=== PATIENT | female | born 1980 | race Caucasian/White ===

== ENCOUNTER 2022-08-25 13:00 | Outpatient (RCR) | payer OTHER, SELFPAY ==
--- NOTE | 2022-08-11 13:59 | MHC.PT.EP ---
[facility] [place] Office [place] Office [place] Office [address] Tonio Linn [address] [phone] F: [phone] F: [phone] F: [phone] F: [phone] Physical Therapy Plan of Care Date of Evaluation: Date of Surgery: NA Diagnosis: B LBP WITH SCIATICA Assessment: Pt IS 42 YO F REFERRED TO PT FROM DR BROWNING WITH LBP WITH SCIATICA. 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 NO SPECIFIC PRECIPITATING EVENT/INJURY TO ONSET OF PAIN. HAS HAD SOME MED WITH A LITTLE RELIEF. OVERALL BETTER THAN WHEN PAIN BEGAN 05/27/22 ( I COULDNT EVEN WALK THEN ). PRESENTS TO PT SHAKING REPORTS SHE HAS BEEN THROWING UP AND HAS NOT EATEN BUT SHE DIDNT WANT TO CX. MODIFIED EVAL BEGUN. PRESENTS WITH ANTALGIC GT, LIMTED TRUNK ROM, LIMITED LE FLEXIBILITY, DECREASED CORE STRENGTH, BACK PAIN WITH FLUCTUATING LE SXS. SHOULD BENEFIT FROM PT TO ADDRESS THESE ISSUES Frequency and Duration: The patient will be seen 2X/WK X 6 WKS Short Term Goals: 1. CENTRALIZE SXS 2. INCREASED AWARENESS BACK CARE 3. Pt TO PERF 2-3 WORK REL TASKS WITH PROPER BODY MECH 4. IMPROVED GT PATTERN (LESS SLOW AND ANTALGIC) Family Medicine Physician Assistant Goals: 1. IMPROVED MOD OSWESTRY (29/50 AT SOC) 2. RTW 3. DECREASED BACK PAIN AT LEAST 50% WITH ADLS Treatment Plan: Modalities to reduce pain, spasms and effusion. Manual therapy to restore motion and function. Therapeutic exercise to improve strength and flexibility. Neuromuscular re-education for posture and balance. Therapeutic activities to return to functional activities of daily living. Electronically signed by: BECKI ELLINGTON PT Please sign and return to therapist. Thank you for your referral.
--- NOTE | 2022-12-01 13:39 | MHC.PT.DC ---
[facility] [place] Office [place] Office [place] Office [address] [place] [address] Dr Tonio Linn [address] [phone] F: [phone] F: [phone] F: [phone] F: [phone] Physical Therapy Discharge Report Diagnosis: B LBP WITH SCIATICA Date of Surgery: NA Date of Evaluation: 08/11/22 Date of Discharge: 12/01/22 Treatments to Date: 3 Cancellations to Date: No Shows to Date: Discharge Status: Visit Non-compliance Discharge Summary: Pt SEEN FOR INIT EVAL AND 2 VISITS. AT LAST VISIT ON 08/25/22 PER ASSESSMENT SLIGHTLY IMPROVED AKI TO STRETCH/EX TODAY. REPORTS RELIEF WITH ST WORK (NO SIGNIF ERYTHEMA NOTED). SHOULD BENEFIT FROM SLOW PROGRESSION OF EXS/STRETCHES. MAYBE TRY TO KEEP BETWEEN 5 AND 7 TOTAL FOR HOME. . Pt THEN NO SHOWED HER LAST SCHEDULED APPT Electronically signed by: BECKI ELLINGTON PT Please sign and return to therapist. Thank you for your referral.
== END 2022-12-01 13:42 | disposition home or self-care (01) ==
LOC: HO.PTWFD 13:00
PROVIDERS: PCP Hospitalist; Visit Provider Family Medicine
DX: M54.40 Lumbago with sciatica, unspecified side (principal)
CPT/HCPCS: 97110; 97140; 97162

== ENCOUNTER 2023-06-02 09:37 | Outpatient (AMB) | payer OTHER, SELFPAY ==
[2023-06-02 09:42] VITALS: BP 140/90; PULSE 126; RESP 13; O2SAT 96; BMI 31.7
--- NOTE | 2023-06-02 09:42 | A.OFFPC_ITS ---
Vital Signs 06/02/23 09:42 Height 5 ft 9 in Weight 215 lb BMI 31.7 BP 140/90 H Blood Pressure Location Lt brachial Position Sitting Respiration 13 Pulse 126 H Pulse Source Pulse Oximeter Pulse Oximetry (%) 96 Oxygen Delivery Method Room Air Intake Visit Reasons: [facility] detox/05-23 Intake Note: Patient is here from multiple hospital stays and [facility] detox facility. Patient reports she did not have discharge instructions from [facility]. Patient reports she was told she has hepatitis, elevated liver enzymes, and hypertension. Patient is currently taking Acamprosate Calcium 333MG TABLETS 3 TIMES A DAY. Patient reports she goes to twice per day and she does not have a sponsor yet. Patient has an appointment next week at [facility] for medications. Patient reports she is 23 days sober today. Patient is currently fasting in case of labs. 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 Required: No Accompanied by: Self / Same As Patient Allergies sulfamethoxazole [From Bactrim] Allergy (Mild, Verified 06/02/23 09:56) Rash trimethoprim [From Bactrim] Allergy (Mild, Verified 06/02/23 09:56) Rash Tobacco use date assessed: 06/02/23 Dental Screening Dental Screen Date: 06/02/23 Did you have a dental visit in the last 12 months?: No Did you have a dental problem in the last 6 months where you did not have access to dental care?: No Was dental information given to patient?: Patient declined HPI [facility] detox HPI Details 43 y/o female presents to f/u ED visit for alcohol withdrawal. She reports she is here to f/u for detox but I do not see any notes for this. Blood pressure today 140/90, 126p. She is on lisinopril 20mg and metoprolol 100mg daily. She reports she is not taking her metoprolol at home as it is . She reports she was last at the [facility] last Tuesday and is on acamprosate 666mg t.i.d. Pt reports ongoing bilateral low back pain. HPI Comments History of Present Illness Details Documentation assistance for Alvino Hayes MD, was provided by Jose Lennon,? Car Body Inspector on 06/02/2023 10:19 AM EST. I, Dr. Hayes, have read, observed, and verified documentation. [facility] Medical History (Updated 06/02/23 @ 10:37 by Jose Lennon) Hypertension Lower back pain Family History (Updated 06/02/23 @ 10:03 by Mattie Valdes CMA) Mother Hypertension Breast cancer Lung cancer Diabetes No family history of mental disorder Alcoholic Father Diabetes Hypertension Heart attack Cardiac abnormality No family history of mental disorder Social History Housing: Apartment Patient Tobacco Use Status: Current everyday Tobacco user Cigarette Packs Per Day: 0.25 (half a pack depending on the mood patient is in) Cigarettes Per Day: 5 (patient stated 10 or maybe 5) Years Smoked: 20 e-Cigarette/Vaping Use: Never Used service: No Current occupational status: employed and disabled Current occupation: Filed for disability Current occupational exposures/hazards: No Cognitive needs: No Hearing needs: No Vision needs: No Questionnaire Thrive Questionnaire Date Thrive assessed: 07/16/22 TEQUILA-7 AMB Questionnaire TEQUILA-7 Date TEQUILA - 7 assessed: 07/16/22 Source: Developed by Drs. Ra Maddox, Nadiya Correa, Dylon Norman and colleagues, with an educational jc from [employer]. Review of Systems Const Denies chills, Denies fatigue, Denies fever(s), Denies headache(s) and Denies weakness ENT Denies dizziness and Denies headache(s) Card Denies chest pain, Denies lightheadedness, Denies dyspnea and Denies other (Palpitations) Resp Denies cough, Denies dyspnea, Denies wheezing and Denies other ( shortness of breath) Musc Denies numbness and Denies tingling Neuro Denies dizziness, Denies headache(s), Denies numbness, Denies tingling, Denies paresthesias and Denies weakness Psych Denies anxiety and Denies depression Endo Denies fatigue Aller/Immun Denies wheezing Physical exam (Primary Care) Vital Signs: Last Vital Signs Pulse 126 H 06/02/23 09:42 Resp 13 06/02/23 09:42 BP 140/90 H 06/02/23 09:42 Pulse Ox 96 06/02/23 09:42 Oxygen Delivery Method Room Air 06/02/23 09:42 BMI result Body Mass Index 31.7 Tobacco/Smoking Status: Tobacco use Status Tobacco use date assessed 06/02/23 06/02/23 10:03 Patient Tobacco Use Status Current everyday Tobacco 06/02/23 10:03 e-Cigarette/Vaping Use Never Used 06/02/23 09:45 Thrive Assessment: Date of Thrive Assessment Date Thrive assessed 07/16/22 06/02/23 09:45 Const General: no acute distress and well developed Nutritional Appearance: well nourished Orientation/consciousness: patient oriented x3 HENMT Head: Yes normocephalic and Yes atraumatic Eyes General: appearance normal, both eyes and all related structures Pupils: Equal, round and reactive pupils present EOM: EOMs intact bilaterally Resp Effort & Inspection: normal respiratory effort Auscultation: clear to auscultation bilaterally Cardio Rate: tachycardic Rhythm: regular rhythm Heart sounds: S1 normal heart sound present, S2 normal heart sound present, no gallops, no murmurs and no rubs Neuro General: patient oriented x3 and gait normal Cranial nerves: Yes Equal, round and reactive pupils present Psych Affect: normal affect Assessment and Plan Assessment & Plan (1) Alcohol withdrawal: Code(s): F10.939 - Alcohol use, unspecified with withdrawal, unspecified Plan: Still?showing?some?signs?of?withdrawal?such?as ?elevated?heart?rate?but?she?has?been?abstinent?from?alcohol She?will?continue?abstinence Will?deal?with?heart?rate?and?blood?pressure?as?described?below. (2) Hypertension: Code(s): I10 - Essential (primary) hypertension Plan: Blood?pressure?is?elevated.??Recent?withdrawal and?detox?from?alcohol She?had?been?on?metoprolol?and?lisinopril?as?well?as?amlodipine?in?the?past. She?has?not?been?taking?any?medications?for?blood?pressure Will?resume?metoprolol?and?lisinopril?and?follow-up?in?a? month?to?adjust?her?medications. (3) Alcohol abuse: Code(s): F10.10 - Alcohol abuse, uncomplicated Plan: [facility] She?is?on?acamprosate Offered?referral?to?addiction?medicine?and?she?will?think?about?this. Encouraged?continue?abstinence (4) Tachycardia: Code(s): R00.0 - Tachycardia, unspecified Plan: Likely?secondary?to?alcohol?withdrawal Starting?metoprolol?as?above Advised?good?hydration (5) Bilateral low back pain with sciatica: Code(s): M54.40 - Lumbago with sciatica, unspecified side Plan: Will?give?her?diclofenac?gel Advised?heat Will?refer?her?back?to?[place] Orders: Orders Complete Blood Count Auto Diff Today Z00.00 - Encounter for general adult medical examination without abnormal findings Comprehensive Schroeder. Panel Fast Today Z00.00 - Encounter for general adult medical examination without abnormal findings Lipid Panel Today Z00.00 - Encounter for general adult medical examination without abnormal findings TSH reflex Free T4 Today Z00.00 - Encounter for general adult medical examination without abnormal findings UA and rflx microscopic Today Z00.00 - Encounter for general adult medical examination without abnormal findings Vitamin B12 and Folate Today E53.8 - Deficiency of other specified B group vitamins Microalbumin, Random (w Creat) Today I10 - Essential (primary) hypertension Medications: New lisinopril 10 mg PO DAILY 30 days 30 tabs 2RF metoprolol succinate ER 50 mg PO Q12H 30 days 60 tabs 2RF diclofenac sodium 1% (Aleve (diclofenac)) apply to single knee, ankle, foot; for foot includes sole/toes/top of foot 4 grams topical QID 30 days 200 grams 3RF Discontinued ibuprofen take at least two or three doses per day with a meal at least 6 hours apart Discontinued Reason: Doctor's Order 800 mg PO Q8H 90 tabs 0RF M54.40 - Lumbago with sciatica, unspecified side Coding Level of Care Code Est Pt Level 3 (97462) Diagnoses Alcohol withdrawal F10.939 Hypertension I10 Alcohol abuse F10.10 Tachycardia R00.0 Bilateral low back pain with sciatica M54.40
== END 2023-06-02 10:50 | disposition home or self-care (01) ==
PROVIDERS: PCP Family Medicine; Visit Provider Family Medicine
DX: I10 Essential (primary) hypertension (principal); F10.939 Alcohol use, unspecified with withdrawal, unspecified; R00.0 Tachycardia, unspecified; M54.40 Lumbago with sciatica, unspecified side
CPT/HCPCS: 99213

== ENCOUNTER 2023-06-02 10:39 | Outpatient (REF) | payer OTHER, SELFPAY ==
[2023-06-02 14:31] LABS: MANUAL DIFF FLAG NO
[2023-06-02 14:38] LABS: Basophils Absolute Auto 0.1 X10*3/uL (0.0-0.2); Eosinophils Absolute Auto 1.1 X10*3/uL (0.0-0.4); Hematocrit 39.2 % (37.0-47.0); Hemoglobin 12.9 g/dl (12.0-16.0); Imm Gran Abs Auto 0.08 X10*3/uL (0.00-0.03); Imm Gran Pct Auto 0.6 % (0.0-0.4); Lymphocytes Absolute Auto 2.7 X10*3/uL (1.2-4.9); Mean Corpuscular HGB Conc 32.9 g/dl (31.0-35.0); Mean Corpuscular Hemoglobin 31.5 pg (27.0-33.0); Mean Corpuscular Volume 95.6 fL (80.0-98.0); Mean Platelet Volume 10.1 fL (9.4-12.3); Monocytes Percent Auto 7.7 % (2-11); Neutrophils Absolute Auto 8.5 x10*3/uL (2.0-8.3); Neutrophils Percent Auto 62.7 % (45-73); Platelet Count 293 X10*3/uL (160-400); Red Cell Distribution Width 13.1 % (11.0-16.0); White Blood Count 13.5 X10*3/uL (4.8-10.8)
[2023-06-02 14:45] LABS: Appearance Urine Cloudy; Color Urine Yellow; Glucose Urine UA Negative (Negative); Leukocyte Esterase Urine Moderate (2+) (Negative); Nitrite Urine Positive (Negative); PH 6.5 (5.0-9.0); Specific Gravity - Urine 1.015 (1.005-1.025); UMIC TRIGGER UA YES; Urine Blood Large (3+) (Negative); Urine Ketones Negative (Negative); Urine Protein Negative (Neg-Trace)
[2023-06-02 14:57] LABS: Bacteria Urine 4+ (None Seen); Hyaline Casts Urine 0-2 /LPF (0-2); WBC Urine 21-50 /HPF (0-5)
[2023-06-02 15:12] LABS: Creatinine Urine 95.38 mg/dL; Microalbum/Creatinine Ratio Ur 19.9 ug/mg cr (<30)
[2023-06-02 15:15] LABS: Alanine Aminotransferase 68 U/L (0-31); Albumin Level 3.6 g/dL (3.5-5.0); Alkaline Phosphatase 86 U/L (39-117); Anion Gap 12 (12-20); Aspartate Amino Transferase 106 U/L (5-31); Bilirubin Total 0.4 mg/dL (0.0-1.0); Blood Urea Nitrogen 8 mg/dL (9-16); Calcium 9.8 mg/dL (8.4-10.2); Carbon Dioxide 26 mmol/L (22-29); Chloride 104 mmol/L (96-108); Cholesterol 189 mg/dL (<200); Estimated Glomerular Filt Rate > 60; Glucose Fasting 101 mg/dL (60-99); HDL Cholesterol 26 mg/dL (>40); LDL Cholesterol Calculated 137 mg/dL (<100); Potassium 4.2 mmol/L (3.3-5.1); Sodium 138 mmol/L (135-145); Total Protein 7.8 g/dL (6.5-8.0); Triglycerides 130 mg/dL (<150)
[2023-06-02 15:31] LABS: TSH reflex Free T4 5.67 uIU/mL (0.32-4.0)
[2023-06-02 15:46] LABS: Folate 14.1 ng/mL (> or = 4.0); Vitamin B12 1654 pg/mL (200-900)
== END 2023-06-02 10:40 | disposition home or self-care (01) ==
LOC: HO.WFDLDS 10:39
PROVIDERS: Visit Provider Family Medicine
DX: Z00.00 Encounter for general adult medical examination without abnormal findings (principal); E53.8 Deficiency of other specified B group vitamins; I10 Essential (primary) hypertension
CPT/HCPCS: 36415; 80053; 80061; 81001; 82043; 82570; 82607; 82746; 84439; 84443; 85025

== ENCOUNTER 2023-12-02 11:37 | Outpatient (AMB) | payer OTHER, SELFPAY ==
[2023-12-02 12:06] VITALS: BP 132/72; PULSE 81; O2SAT 96; BMI 28.5
--- NOTE | 2023-12-02 12:06 | A.OFFPC_ITS ---
Vital Signs 12/02/23 12:06 Height 5 ft 9 in Weight 193 lb BMI 28.5 BP 132/72 Blood Pressure Location Lt brachial Position Sitting Pulse 81 Pulse Source Pulse Oximeter Pulse Oximetry (%) 96 Oxygen Delivery Method Room Air Intake Visit Reasons: PE Intake Note: Patient is here for her physical today. Allergies sulfamethoxazole [From Bactrim] Allergy (Mild, Verified 12/02/23 12:08) Rash trimethoprim [From Bactrim] Allergy (Mild, Verified 12/02/23 12:08) Rash Tobacco use date assessed: 12/02/23 Dental Screening Dental Screen Date: 12/02/23 Did you have a dental visit in the last 12 months?: No Did you have a dental problem in the last 6 months where you did not have access to dental care?: No Was dental information given to patient?: Patient has dentist HPI PE HPI Details 43 y/o female presents for an extended e xam with f/u labs and health maintenance. Recent visit to the emergency dept. 11/09/23 with concerns for alcohol withdrawal. Pt had stated she had withdrawal seizure in the past. Blood pressure today 132/72. She is on lisinopril 10mg, metoprolol 50mg. She does get exercise and walks daily. She reports she has not had a mammogram yet. HPI Comments History of Present Illness Details Documentation assistance for Alvino Hayes MD, was provided by Jose Lennon,? Academic Vice President on 12/02/2023 at 12:42 PM EST. I, Dr. Hayes, have read, observed, and verified documentation.? [facility]LY [facility], [facility] Medical History (Updated 12/02/23 @ 12:40 by Alvino Hayes MD) Ureteral stent present Hypertension Lower back pain Family History Mother Hypertension Breast cancer Lung cancer Diabetes No family history of mental disorder Alcoholic Father Diabetes Hypertension Heart attack Cardiac abnormality No family history of mental disorder Social History Housing: Apartment Patient Tobacco Use Status: Current everyday Tobacco user Cigarette Packs Per Day: 0.25 (half a pack depending on the mood patient is in) Cigarettes Per Day: 5 (patient stated 10 or maybe 5) Years Smoked: 20 e-Cigarette/Vaping Use: Never Used service: No Current occupational status: employed and disabled Current occupation: Filed for disability Current occupational exposures/hazards: No Cognitive needs: No Hearing needs: No Vision needs: No Questionnaire PHQ-9 Over the last 2 weeks, how often have you been bothered by any of the following problems? 1. Little interest or pleasure in doing things: several days 2. Feeling down, depressed, or hopeless: not at all 3. Trouble falling or staying asleep, or sleeping too much: several days 4. Feeling tired or having little energy: several days 5. Poor appetite or overeating: not at all 6. Feeling bad about yourself - or that you are a failure or have let yourself or your family down: not at all 7. Trouble concentrating on things, such as reading the newspaper or watching television: several days 8. Moving or speaking so slowly that other people could have noticed. Or the opposite - being so fidgety or restless that you have been moving around a lot more than usual: not at all 9. Thoughts that you would be better off or of hurting yourself in some way: not at all Total score: 4 Depression Screening Interpretation: Negative Depression Screening Done: Yes Source: Developed by Drs. Ra Maddox, Nadiya Correa, Dylon Norman and colleagues, with an educational jc from [employer]. Thrive Questionnaire Date Thrive assessed: 12/02/23 I am a: Patient What is your living situation today?: I have a steady place to live Within the past 12 months, did the food you bought not last and you didn't have the money to get more?: Never true Within the past 12 months, did you worry whether your food would run out before you got money to buy more?: Never true Do you have trouble paying for medicines?: No Do you have trouble getting transportation to medical appointments?: Yes Do you have trouble paying your heating and electricity bill?: No Do you have trouble taking care of your child, family member or friend?: No Do you have trouble with day-to-day activities such as bathing, preparing meals, shopping, managing finances, etc.?: No Are you currently unemployed and looking for a job?: No Are you interested in more education?: No THRIVE Score: 1 AUDIT C Alcohol Use Questionnaire (AUDIT-C) 1. How often do you have a drink containing alcohol?: 2-3 times a week 2. How many drinks containing alcohol do you have on a typical day when you are drinking?: 5 or 6 3. How often do you have six or more drinks on one occasion?: Never Total Score: 5 TEQUILA-7 AMB Questionnaire TEQUILA-7 Date TEQUILA - 7 assessed: 12/02/23 Feeling nervous, anxious, or on edge: 3 = Nearly every day Not being able to stop or control worryin = Several days Worrying too much about different things: 0 = Not at all Trouble relaxin = Not at all Being so restless that it is hard to sit still: 0 = Not at all Becoming easily annoyed or irritable: 1 = Several days Feeling afraid as if something awful might happen: 0 = Not at all Total TEQUILA-7 score (0-4 normal; 5-9 mild; 10-14 moderate; 15-21 severe): 5 Source: Developed by Drs. Ra Maddox, Nadiya Correa, Dylon Norman and colleagues, with an educational jc from [employer]. Review of Systems Const Denies chills, Denies fatigue, Denies fever(s), Denies headache(s) and Denies weakness Eyes Denies change in vision ENT Denies dizziness, Denies headache(s), Denies hearing loss, Denies nasal congestion, Denies sinus pain, Denies sinus pressure and Denies sore throat Card Denies chest pain, Denies lightheadedness, Denies dyspnea and Denies other (palpitations) Resp Denies cough, Denies dyspnea and Denies wheezing GI Denies abdominal pain, Denies melena, Denies hematochezia, Denies change in bowel habits, Denies dyspepsia and Denies nausea Denies hematuria and Denies dysuria Musc Denies abnormal gait, Denies myalgias, Denies arthralgias, Denies numbness and Denies tingling Skin/Breast Denies rash, Denies unusual bruising and Denies wounds Neuro Denies abnormal gait, Denies dizziness, Denies headache(s), Denies memory loss, Denies numbness, Denies Sensory deficit (Neuro), Denies tingling and Denies weakness Psych Denies anxiety, Denies depression and Denies memory loss Endo Denies cold intolerance, Denies fatigue, Denies heat intolerance, Denies polydipsia and Denies polyuria Anson/Lymph Denies easy bleeding and Denies easy bruising Aller/Immun Denies wheezing Physical exam (Primary Care) Vital Signs: Last Vital Signs Pulse 81 12/02/23 12:06 BP 132/72 12/02/23 12:06 Pulse Ox 96 12/02/23 12:06 Oxygen Delivery Method Room Air 12/02/23 12:06 BMI result Body Mass Index 28.5 Tobacco/Smoking Status: Tobacco use Status Tobacco use date assessed 12/02/23 12/02/23 12:23 Patient Tobacco Use Status Current everyday Tobacco 12/02/23 12:09 e-Cigarette/Vaping Use Never Used 12/02/23 12:09 PHQ-9: PHQ-9 Score PHQ-9: Total score 4 12/02/23 12:23 Depression Screening Interpretation: Negative Thrive Assessment: Date of Thrive Assessment Date Thrive assessed 12/02/23 12/02/23 12:23 Const General: no acute distress, well developed, alert and awake Nutritional Appearance: well nourished Orientation/consciousness: patient oriented x3 HENMT Head: Yes normocephalic and Yes atraumatic Ears: hearing grossly normal bilaterally and TM's normal bilaterally General nose exam: Normal external nose present and Normal nares present Mouth: Normal oral and palatal mucosa present and moist mucous membranes Teeth and gingiva: dentition normal Throat: Yes posterior oropharynx normal Eyes General: appearance normal, both eyes and all related structures Pupils: Equal, round and reactive pupils present and Pupil accommodation reflex normal EOM: EOMs intact bilaterally Neck Neck: Yes normal visual inspection, Yes no lymphadenopathy and Yes trachea midline Thyroid: Thyroid normal Carotids: no bruits Lymphatic: no lymphadenopathy noted Chest Chest palpation & inspection: normal inspection of the chest Resp Effort & Inspection: normal respiratory effort Auscultation: clear to auscultation bilaterally Cardio Rate: regular rate Rhythm: regular rhythm Heart sounds: S1 normal heart sound present, S2 normal heart sound present, no gallops, no murmurs and no rubs Bruits: no abdominal aortic bruits and no carotid bruits GI Palpation (GI): No Abdominal aortic bruit present, Soft to palpation, nontender, No hepatosplenomegaly present and No Rebound tenderness present Auscultation: normal bowel sounds General: Yes no CVA tenderness Back/Spine/Pelvis Back: no CVA tenderness Cervical Spine: cervical ROM normal and No Cervical spine tenderness Thoracic/Lumbar Spine: thoraco-lumbar ROM normal, No pain with thoraco-lumbar ROM, No thoracic spinal tenderness and No lumbar spinal tenderness Skin Lesions: no lesions Rashes: no rashes Trauma: no lacerations or abrasions Wounds: no wounds Nails: normal Neuro General: patient oriented x3 Cranial nerves: Yes Equal, round and reactive pupils present Cognition (Neuro): normal cognition Gait exam (Neuro): Normal gait present Motor exam (neuro): 5/5 motor strength present throughout Sensory Exam: No Sensory deficit (Neuro) Deep tendon reflexes (DTR's): Right patellar reflex intensity grade: 2+ and Left patellar reflex intensity grade: 2+ Extrem General: Yes normal to inspection and No edema Psych Appearance: grossly normal Affect: normal affect Attitude: cooperative Thought process: Normal thought process present Assessment and Plan Assessment & Plan (1) Alcoholism: Code(s): F10.20 - Alcohol dependence, uncomplicated Plan: Several?visits?to?the?ED?for?alcohol?intoxication/withdrawal Referred?to?the?[facility]rehens[facility]?for?help?with?weaning?and?cessation?an d?binge?avoids. (2) Hypertension: Code(s): I10 - Essential (primary) hypertension Plan: Blood?pressure?is?controlled.??Goal?is?less?than?140/90 Continue?current?medications (3) Esophagitis: Code(s): K20.90 - Esophagitis, unspecified without bleeding Plan: Esophagitis?and?likely?gastritis.??Also?hiatal?hernia I?have?referred?her?to?Gastroenterology (4) Smoker: Code(s): F17.200 - Nicotine dependence, unspecified, uncomplicated Plan: Patient?is?only?smoking?1/4?pack?per?day Trial?bupropion?to?help?with?complete?cessation. (5) Hydronephrosis, right: Code(s): N13.30 - Unspecified hydronephrosis Plan: Hydronephrosis?of?right?kidney?and?ureter?and?now?status?post?stent Referred?to?urology-she?has?an?appointment?already?to?remove?the?stent. 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 supervisor?care?or?Pap?smear Referred?to?film processing supervisor (7) Hiatal hernia: Code(s): K44.9 - Diaphragmatic hernia without obstruction or gangrene Plan: As?above (8) Screening for cervical cancer: Code(s): Z12.4 - Encounter for screening for malignant neoplasm of cervix Plan: As?above,?referred?to?film processing supervisor (9) Breast cancer screening by mammogram: Code(s): Z12.31 - Encounter for screening mammogram for malignant neoplasm of breast Plan: No?prior?mammograms Mom?passed?away?from?breast?cancer Mammogram?order (10) Adult general medical exam: Code(s): Z00.00 - Encounter for general adult medical examination without abnormal findings Plan: 43-year-old?female?presents?for?extended?exam (11) Hepatomegaly: Code(s): R16.0 - Hepatomegaly, not elsewhere classified Plan: Secondary?to?alcoholism?and?also?has?elevated?liver?enzyme Referred?to?Gastroenterology (12) Elevated liver enzymes: Code(s): R74.8 - Abnormal levels of other serum enzymes Plan: As?above Orders: Orders Microalbumin, Random (w Creat) Today I10 - Essential (primary) hypertension Complete Blood Count Auto Diff Today Z00.00 - Encounter for general adult medical examination without abnormal findings Free T4 (Free Thyroxine) Today E03.9 - Hypothyroidism, unspecified UA and rflx microscopic Today Z00.00 - Encounter for general adult medical examination without abnormal findings Vitamin B12 and Folate Today E53.8 - Deficiency of other specified B group vitamins Hemoglobin A1c Today R73.01 - Impaired fasting glucose US abdomen sadler w elastography Today F10.20 - Alcohol dependence, uncomplicated, R16.0 - Hepatomegaly, not elsewhere classified, R74.8 - Abnormal levels of other serum enzymes MM tomosynthesis screening BI Today Z12.31 - Encounter for screening mammogram for malignant neoplasm of breast Comprehensive [place]. Panel Fast Today Z00.00 - Encounter for general adult medical examination without abnormal findings Lipid Panel Today Z00.00 - Encounter for general adult medical examination without abnormal findings Triiodothyronine T3 Total Today E03.9 - Hypothyroidism, unspecified TSH reflex Free T4 Today Z00.00 - Encounter for general adult medical examination without abnormal findings Referrals Gastroenterology Referral F10.20 - Alcohol dependence, uncomplicated, K20.90 - Esophagitis, unspecified without bleeding, K44.9 - Diaphragmatic hernia without obstruction or gangrene, R16.0 - Hepatomegaly, not elsewhere classified, R74.8 - Abnormal levels of other serum enzymes Urology Referral N13.30 - Unspecified hydronephrosis GLASS DEPOSITION TENDER Referral N83.209 - Unspecified ovarian cyst, unspecified side, Z12.4 - Encounter for screening for malignant neoplasm of cervix Addiction Medicine Referral F10.20 - Alcohol dependence, uncomplicated Medications: New bupropion HCl 75 mg PO DAILY 30 tabs 2RF 30 days Coding Level of Care Code Est Pt Level 4 (86455) Diagnoses Alcoholism F10.20 Hypertension I10 Esophagitis K20.90 Smoker F17.200 Hydronephrosis, right N13.30 Ovarian cyst N83.209 Hiatal hernia K44.9 Screening for cervical cancer Z12.4 Breast cancer screening by mammogram Z12.31 Adult general medical exam Z00.00 Hepatomegaly R16.0 Elevated liver enzymes R74.8
== END 2023-12-02 14:59 | disposition home or self-care (01) ==
PROVIDERS: PCP Family Medicine; Visit Provider Family Medicine
DX: Z00.00 Encounter for general adult medical examination without abnormal findings (principal); F10.20 Alcohol dependence, uncomplicated; F17.210 Nicotine dependence, cigarettes, uncomplicated; I10 Essential (primary) hypertension; K20.90 Esophagitis, unspecified without bleeding; N13.30 Unspecified hydronephrosis; N83.209 Unspecified ovarian cyst, unspecified side; K44.9 Diaphragmatic hernia without obstruction or gangrene; Z12.31 Encounter for screening mammogram for malignant neoplasm of breast; R16.0 Hepatomegaly, not elsewhere classified; R74.8 Abnormal levels of other serum enzymes
CPT/HCPCS: 99214; 99396

== ENCOUNTER 2024-01-02 10:27 | Outpatient (REF) | payer OTHER, SELFPAY ==
[2024-01-02 14:25] LABS: MANUAL DIFF FLAG NO
[2024-01-02 14:35] LABS: Appearance Urine Turbid; Color Urine Dark Yellow; Glucose Urine UA Negative (Negative); Leukocyte Esterase Urine Large (3+) (Negative); Nitrite Urine Negative (Negative); PH 6.5 (5.0-9.0); Specific Gravity - Urine 1.015 (1.005-1.025); UMIC TRIGGER UA YES; Urine Blood Large (3+) (Negative); Urine Ketones Trace mg/dL (Negative); Urine Protein 300 (3+) mg/dL (Neg-Trace)
[2024-01-02 14:38] LABS: Basophils Absolute Auto 0.1 X10*3/uL (0.0-0.2); Basophils Percent Auto 1.9 % (0-2); Eosinophils Absolute Auto 0.3 X10*3/uL (0.0-0.4); Eosinophils Percent Auto 3.8 % (0-4); Hematocrit 36.6 % (37.0-47.0); Hemoglobin 12.2 g/dl (12.0-16.0); Imm Gran Abs Auto 0.04 X10*3/uL (0.00-0.03); Imm Gran Pct Auto 0.5 % (0.0-0.4); Lymphocytes Absolute Auto 1.8 X10*3/uL (1.2-4.9); Lymphocytes Percent Auto 24.7 % (20-40); Mean Corpuscular HGB Conc 33.3 g/dl (31.0-35.0); Mean Corpuscular Hemoglobin 32.8 pg (27.0-33.0); Mean Corpuscular Volume 98.4 fL (80.0-98.0); Mean Platelet Volume 9.3 fL (9.4-12.3); Monocytes Absolute Auto 0.7 X10*3/uL (0.1-1.2); Monocytes Percent Auto 9.1 % (2-11); Neutrophils Absolute Auto 4.4 x10*3/uL (2.0-8.3); Platelet Count 302 X10*3/uL (160-400); Red Blood Count 3.72 X10*6/uL (4.20-5.50); Red Cell Distribution Width 14.2 % (11.0-16.0); White Blood Count 7.4 X10*3/uL (4.8-10.8)
[2024-01-02 14:42] LABS: Estimated Average Glucose 80 mg/dL; Hemoglobin A1c % 4.4 % (<6.0)
[2024-01-02 15:08] LABS: Bacteria Urine 4+ (None Seen); Calcium Oxalate Crystals Urine Present; Hyaline Casts Urine >20 /LPF (0-2); RBC Urine >20 /HPF (0-2); WBC Urine >50 /HPF (0-5)
[2024-01-02 15:13] LABS: Creatinine Urine 246.37 mg/dL
[2024-01-02 15:18] LABS: Alanine Aminotransferase 22 U/L (0-31); Albumin Level 3.7 g/dL (3.5-5.0); Alkaline Phosphatase 119 U/L (39-117); Anion Gap 13 (12-20); Aspartate Amino Transferase 40 U/L (5-31); Bilirubin Total 0.7 mg/dL (0.0-1.0); Blood Urea Nitrogen 8 mg/dL (9-16); Carbon Dioxide 25 mmol/L (22-29); Chloride 107 mmol/L (96-108); Cholesterol 244 mg/dL (<200); Estimated Glomerular Filt Rate > 60; Free T4 (Free Thyroxine) 0.91 ng/dL (0.71-1.85); Glucose Fasting 96 mg/dL (60-99); HDL Cholesterol 61 mg/dL (>40); LDL Cholesterol Calculated 157 mg/dL (<100); Potassium 3.5 mmol/L (3.3-5.1); Sodium 141 mmol/L (135-145); TSH reflex Free T4 2.76 uIU/mL (0.32-4.0); Total Protein 7.8 g/dL (6.5-8.0); Triglycerides 133 mg/dL (<150)
[2024-01-02 15:20] LABS: Folate 9.4 ng/mL (> or = 4.0); Vitamin B12 402 pg/mL (200-900)
[2024-01-02 15:21] LABS: Microalbum/Creatinine Ratio Ur 399.3 ug/mg cr (<30)
[2024-01-03 16:58] LABS: Triiodothyronine T3 Total 141 ng/dL (76-181)
== END 2024-01-02 10:28 | disposition home or self-care (01) ==
LOC: HO.WFDLDS 10:27
PROVIDERS: Visit Provider Family Medicine
DX: Z00.00 Encounter for general adult medical examination without abnormal findings (principal); E53.8 Deficiency of other specified B group vitamins; E03.9 Hypothyroidism, unspecified; R73.01 Impaired fasting glucose; I10 Essential (primary) hypertension
CPT/HCPCS: 36415; 80053; 80061; 81001; 82043; 82570; 82607; 82746; 83036; 84439; 84443; 84480; 85025

== ENCOUNTER 2024-01-04 16:23 | Outpatient (AMB) | payer OTHER, SELFPAY ==
[2024-01-04 16:27] VITALS: BP 164/90; PULSE 114; RESP 14; TEMP 36.6; O2SAT 99; BMI 28.3
--- NOTE | 2024-01-04 16:27 | A.OFFPC_ITS ---
Vital Signs 01/04/24 16:27 Height 5 ft 9 in Weight 191 lb 6 oz BMI 28.3 BP 164/90 H Blood Pressure Location Rt brachial Position Sitting Respiration 14 Pulse 114 H Pulse Source Pulse Oximeter Temp 97.8 F Temp Source Temporal Artery Scan Pulse Oximetry (%) 99 Oxygen Delivery Method Room Air Intake Visit Reasons: f/u labs, chronic conditions Counselor Aide Required: No Accompanied by: Self / Same As Patient Allergies sulfamethoxazole [From Bactrim] Allergy (Mild, Verified 01/04/24 16:31) Rash trimethoprim [From Bactrim] Allergy (Mild, Verified 01/04/24 16:31) Rash Medication List - Last Reconciled 01/04/24 by Alvino Hayes MD acamprosate 666 mg PO TID bupropion HCl 75 mg PO DAILY 30 days diclofenac sodium 1% (Aleve (diclofenac)) 4 grams topical QID 30 days lisinopril 10 mg PO DAILY 30 days metoprolol succinate ER 50 mg PO Q12H 30 days Tobacco use date assessed: 12/02/23 Dental Screening Dental Screen Date: 12/02/23 HPI f/u labs, chronic conditions HPI Details 43 y/o female presents to 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 Labs were drawn 01/02/24. Reviewed labs with pt. Macrocytic anemia. Triglycerides 133. TC 244. LDL 157. HDL 61. TSH improved from 5.67 to 2.76. Blood pressure today 164/90, 114p. She is on lisinopril 10mg and metoprolol 50mg. She reports increased anxiety today. Pt notes she feels bupropion has been helping her with smoking cessations. [facility] Medical History Ureteral stent present Hypertension Lower back pain Surgical History No pertinent past surgical history Family History Mother Hypertension Breast cancer Lung cancer Diabetes No family history of mental disorder Alcoholic Father Diabetes Hypertension Heart attack Cardiac abnormality No family history of mental disorder Social History Housing: Apartment Patient Tobacco Use Status: Current everyday Tobacco user Cigarette Packs Per Day: 0.25 (half a pack depending on the mood patient is in) Cigarettes Per Day: 5 (patient stated 10 or maybe 5) Years Smoked: 20 e-Cigarette/Vaping Use: Never Used service: No Current occupational status: employed and disabled Current occupation: Filed for disability Current occupational exposures/hazards: No Cognitive needs: No Hearing needs: No Vision needs: No Questionnaire Thrive Questionnaire Date Thrive assessed: 12/02/23 TEQUILA-7 AMB Questionnaire TEQUILA-7 Date TEQUILA - 7 assessed: 12/02/23 Source: Developed by Drs. Ra Maddox, Nadiya Correa, Dylon Norman and colleagues, with an educational jc from [employer]. Review of Systems Const Denies chills, Denies fatigue, Denies fever(s), Denies headache(s) and Denies weakness ENT Denies dizziness and Denies headache(s) Card Denies dyspnea Resp Denies cough, Denies dyspnea, Denies wheezing and Denies other (shortness of breath) Musc Denies numbness and Denies tingling Neuro Denies dizziness, Denies headache(s), Denies numbness, Denies tingling and Denies weakness Psych Reports anxiety and Denies depression Endo Denies fatigue Aller/Immun Denies wheezing Physical exam (Primary Care) Vital Signs: Last Vital Signs Temp 97.8 F 01/04/24 16:27 Pulse 114 H 01/04/24 16:27 Resp 14 01/04/24 16:27 BP 164/90 H 01/04/24 16:27 Pulse Ox 99 01/04/24 16:27 Oxygen Delivery Method Room Air 01/04/24 16:27 BMI result Body Mass Index 28.3 Tobacco/Smoking Status: Tobacco use Status Tobacco use date assessed 12/02/23 01/04/24 16:32 Patient Tobacco Use Status Current everyday Tobacco 01/04/24 16:32 e-Cigarette/Vaping Use Never Used 01/04/24 16:32 Thrive Assessment: Date of Thrive Assessment Date Thrive assessed 12/02/23 01/04/24 16:32 Const General: well developed; No acute distress Nutritional Appearance: well nourished Orientation/consciousness: patient oriented x3 HENMT Head: Yes normocephalic and Yes atraumatic Eyes General: appearance normal, both eyes and all related structures Pupils: Equal, round and reactive pupils present EOM: EOMs intact bilaterally Resp Effort & Inspection: normal respiratory effort Auscultation: clear to auscultation bilaterally Cardio Rate: regular rate Rhythm: regular rhythm Heart sounds: S1 normal heart sound present, S2 normal heart sound present, no gallops, no murmurs and no rubs Neuro General: patient oriented x3 and gait normal Cranial nerves: Yes Equal, round and reactive pupils present Psych Affect: normal affect Assessment and Plan Assessment & Plan (1) Hypertension: Code(s): I10 - Essential (primary) hypertension Plan: Blood?pressure?is?too?high?and?patient?notes?that?she?is?anxious?today. Continue?lisinopril?and?metoprolol Will?add?clonidine?which?she?can?take?intermittently?when?she?is?anxious. (2) Tachycardia: Code(s): R00.0 - Tachycardia, unspecified Plan: As?above,?patient?is?anxious?today. Can?try?clonidine?when?anxious Will?use?low?dose?of?clonidine?as?patient?is?already?on?a?beta-salma (3) Smoker: Code(s): F17.200 - Nicotine dependence, unspecified, uncomplicated Plan: Patient?has?stopped?smoking?while?taking?bupropion.??Congratulated?patient Will?bring?bupropion?up?to?twice?a?day Continue?abstinence (4) Anemia: Code(s): D64.9 - Anemia, unspecified Plan: Mild?macrocytic?anemia.??B12?level?is?on?the?lower?side?and?had?been?high?previo usly?as?she?was?taking?a?supplement. Encouraged?her?to?resume?supplement Will?follow (5) Hypercholesterolemia: Code(s): E78.00 - Pure hypercholesterolemia, unspecified Plan: Cholesterol?level?is?too?high. Encouraged?diet?low?in?saturated?fats?and?cholesterol Will?recheck?prior?to?next?visit (6) Alcoholism: Code(s): F10.20 - Alcohol dependence, uncomplicated Plan: Had?referred?patient?to?the?comprehensive?[facility]inic.??She?has?been?contacted?a nd?wants?to?attend?but?is?having?transportation?problems. I?have?asked?the?office?to?help?with?a?pT1?form (7) Anxiety: Code(s): F41.9 - Anxiety disorder, unspecified Plan: As?above,?patient?can?use?clonidine?which?she?has?tolerated?past (8) Abnormal urine: Code(s): R82.90 - Unspecified abnormal findings in urine Plan: Abnormal?urinalysis -?She?will?drop?off?a?new?urine?sample.??She?denies?any?symptoms (9) Elevated liver enzymes: Code(s): R74.8 - Abnormal levels of other serum enzymes Plan: Patient?is?working?on?abstinence?from?alcohol?and?liver?enzymes?are?much?improve d?and?almost?normal Will?recheck?prior?to?next?visit Orders: Orders Urine Culture Today R82.90 - Unspecified abnormal findings in urine Comprehensive Met. Panel 1 Month E78.00 - Pure hypercholesterolemia, unspecified Microalbumin, Random (w Creat) 1 Month I10 - Essential (primary) hypertension, R82.90 - Unspecified abnormal findings in urine UA and rflx microscopic Today R82.90 - Unspecified abnormal findings in urine, Z00.00 - Encounter for general adult medical examination without abnormal findings Lipid Panel 1 Month E78.00 - Pure hypercholesterolemia, unspecified, Z00.00 - Encounter for general adult medical examination without abnormal findings Vitamin B12 and Folate 1 Month D64.9 - Anemia, unspecified, E53.8 - Deficiency of other specified B group vitamins Complete Blood Count Auto Diff 1 Month D64.9 - Anemia, unspecified, Z00.00 - Encounter for general adult medical examination without abnormal findings Medications: New clonidine HCl 0.1 mg PO BID 90 days PRN 180 tabs 0RF alcohol withdrawal, anxiety Changed From bupropion HCl 75 mg PO DAILY 30 days 30 tabs 2RF To bupropion HCl 75 mg PO BID 30 days 60 tabs 2RF Coding Level of Care Code Est Pt Level 4 (80541) Diagnoses Hypertension I10 Tachycardia R00.0 Smoker F17.200 Anemia D64.9 Hypercholesterolemia E78.00 Alcoholism F10.20 Anxiety F41.9 Abnormal urine R82.90 Elevated liver enzymes R74.8
== END 2024-01-04 16:59 | disposition home or self-care (01) ==
PROVIDERS: PCP Family Medicine; Visit Provider Family Medicine
DX: I10 Essential (primary) hypertension (principal); F10.20 Alcohol dependence, uncomplicated; R00.0 Tachycardia, unspecified; F17.200 Nicotine dependence, unspecified, uncomplicated; D64.9 Anemia, unspecified; E78.00 Pure hypercholesterolemia, unspecified; F41.9 Anxiety disorder, unspecified; R82.90 Unspecified abnormal findings in urine; R74.8 Abnormal levels of other serum enzymes
CPT/HCPCS: 99214